=== PATIENT | male | born 1980 | race Caucasian/White ===

== ENCOUNTER → 2016-11-23 12:36 | Outpatient (CLI) | payer MEDICAID ==
[2016-11-05 11:00] VITALS: BMI 37.9
[~2016-11-23 12:36] MED LIST: CLEOCIN HCL150 MG PO; FLAGYL500 MG PO; GLUCOPHAGE500 MG PO; HYDROCODON-ACE1 EAC7 PO; HYDROCODONE-APA1 TAB PO; KEFLEX500 MG PO; LANTUS INSULIN10 ML SC; ROCEPHIN 2 GM/D52 G1 IV
== END | disposition home or self-care (01) ==
LOC: D.MRI 12:36
DX: M79.671 Pain in right foot (principal)

== ENCOUNTER 2016-11-24 09:34 | Inpatient (IN) | payer MEDICAID ==
[~2016-11-24] VITALS: Ht 180.3 cm; Wt 120.2 kg
[2016-11-24] VITALS (8 sets, daily range): BP systolic 121–130; BP diastolic 73–86; BMI 36.9; BMI 37.0
[~2016-11-24 09:34] MED LIST changes: -FLAGYL500 MG PO; -HYDROCODONE-APA1 TAB PO; -ROCEPHIN 2 GM/D52 G1 IV
[2016-11-24 11:38] LABS: HEMATOCRIT 40.3 % (42.0-54.0); HEMOGLOBIN 13.8 g/dL (13.5-17.5); MCH 29.6 pg (26.0-34.0); MCHC 34.2 g/dL (31.0-37.0); MCV 86.3 fL (80.0-100.0); MEAN PLATELET VOLUME 8.5 fL (7.4-10.4); RBC 4.67 10x6/uL (4.20-6.10); RDW 12.1 % (11.5-14.5); WBC 8.4 10x3/uL (4.8-10.8)
[2016-11-24 11:49] LABS: CALC OSMOLALITY 276 mosm/kg (275-300); CALCIUM 9.2 mg/dL (8.5-10.1); CARBON DIOXIDE 26.1 mmol/L (21.0-32.0); CHLORIDE - SERUM 100 mmol/L (98-107); CREATININE - SERUM 0.9 mg/dL (0.6-1.3); GLUCOSE 231 mg/dL (74-106); POTASSIUM - SERUM 5.2 mmol/L (3.5-5.1); SODIUM 134 mmol/L (136-145); UREA NITROGEN 18 mg/dL (7-18); eGFR NON AFRICAN AMERICAN > 90 mL/min (90-120)
--- NOTE | 2016-11-24 12:38 | NUR ---
[address] CASTILLO REGARDING CONSENTS. STATES PICC LINE PLACEMENT WILL NOT BE DONE IN OR TODAY, CONSENT FOR IRRIGATION AND DEBRIDEMENT RIGHT FOOT.
--- NOTE | 2016-11-24 14:00 | NUR ---
RECEIVED TO ROOM 2203 VIA STRETCHER FROM PACU. A/O X3. DRESSING TO RIGHT FOOT DRY AND INTACT. DENIES NEEDS. VSS.
--- NOTE | 2016-11-24 16:30 | NUR ---
C/O NOT FEELING WELL. BP ELEVATED. C/O PAIN IN LEFT ARM AND NUMBNESS AND TINGLING. NOTIFIED GRACIELA MAHNA OF SAME. FSBS 155. GIVEN 4MG ZOFRAN FOR C/O NAUSEA. COLOR IS WHITE,
--- NOTE | 2016-11-24 17:30 | NUR ---
ALL SYMPTOMS RESOLVED AFTER PICC LINE REMOVED. ATE ALMOST ALL OF SUPPER. DENIES NEEDS.
--- NOTE | 2016-11-24 19:20 | NUR ---
RECIEVED SHIFT REPORT. PT IS LYING IN BED. ALERT AND ORIENTED AND ABLE TO VERBALIZE NEEDS. IV IS PATENT AND FLUIDS ARE RUNNING PER ORDER. SCD TO LEFT LEG. PT ON BEDREST BUT IS ABLE TO TURN SELF IN BED FOR COMFORT AND SKIN CARE. ISOLATION PRECAUTIONS IN PLACE. PT STATES PAIN IS 4/10. NO NEEDS ARE VERBALIZED AT THIS TIME. WILL CONTINUE TO MONITOR. SIDE RAILS ARE UP X 2. BED IS IN LOWEST POSITION. CALL LIGHT IS WITHIN REACH.
--- NOTE | 2016-11-24 21:37 | NUR ---
SHIFT ASSESSMENT COMPLETED. NIGHT MEDS GIVEN WITH NO PROBLEMS. PT RECIEVED 8 UNITS INSULIN PER SLIDING SCALE FOR AAKZ=814. SCHEDULED LANTUS GIVEN. NO NEEDS VOICED. WILL MONITOR. SIDE RAILS X 2. BED LOW. CALL LIGHT IN REACH.
--- NOTE | 2016-11-25 00:42 | NUR ---
PT C/O PAIN 05/24. ADMINISTERED PRESCRIBED PRN NORCO PER ORDER. DENIES FURTHER NEEDS. WILL MONITOR. SIDE RAILS X 2. BED LOW. CALL LIGHT IN REACH.
[2016-11-25 01:00] VITALS: BP 133/77
[2016-11-25 05:00] VITALS: BP 128/70
[2016-11-25 06:11] LABS: BASOPHILS 0.3 % (0.0-2.0); HEMOGLOBIN 12.4 g/dL (13.5-17.5); IMMATURE GRANULOCYTES 0.3 % (0-5); LYMPHOCYTES 21.3 % (15-50); MCH 29.3 pg (26.0-34.0); MCHC 33.5 g/dL (31.0-37.0); MCV 87.5 fL (80.0-100.0); MEAN PLATELET VOLUME 8.5 fL (7.4-10.4); MONOCYTES 11.6 % (2-11); NEUTROPHILS 63.5 % (40-80); PLATELET COUNT 370 10x3/uL (130-400); RBC 4.23 10x6/uL (4.20-6.10); RDW 12.2 % (11.5-14.5)
[2016-11-25 07:06] LABS: ALBUMIN 2.8 g/dL (3.4-5.0); ALKALINE PHOSPHATASE 59 U/L (46-116); ALT (SGPT) 23 U/L (10-68); BILIRUBIN - TOTAL 0.26 mg/dL (0.2-1.3); CALC OSMOLALITY 283 mosm/kg (275-300); CALCIUM 8.4 mg/dL (8.5-10.1); CARBON DIOXIDE 29.2 mmol/L (21.0-32.0); CHLORIDE - SERUM 103 mmol/L (98-107); CREATININE - SERUM 1.1 mg/dL (0.6-1.3); GLUCOSE 237 mg/dL (74-106); MAGNESIUM - SERUM 1.6 mg/dL (1.8-2.4); POTASSIUM - SERUM 4.6 mmol/L (3.5-5.1); PROTEIN - SERUM 7.2 g/dL (6.4-8.2); SODIUM 138 mmol/L (136-145); eGFR NON AFRICAN AMERICAN 79 mL/min (90-120)
[2016-11-25 07:08] LABS: UREA NITROGEN 13 mg/dL (7-18)
[2016-11-25 07:46] LABS: HEMOGLOBIN A1C 9.4 % (4.8-6.0)
[2016-11-25 08:47] VITALS: BP 132/68
[2016-11-25 10:03] VITALS: Ht 180.3 cm; Wt 120.2 kg
[2016-11-25 12:30] VITALS: BP 131/82
[2016-11-25 12:31] LABS: LDL-HDL RATIO 3.6 ratio (1.5-3.5)
--- NOTE | 2016-11-25 17:00 | NUR ---
D/C IV FROM LEFT FOREARM WITH CATH INTACT
[2016-11-25 17:29] VITALS: BP 136/66
--- NOTE | 2016-11-25 20:45 | NUR ---
REPORT RECEIVED AND CARE ASSUMED. AWAKE, ALERT AND ORIENTED X 4. RIGHT FOOT WITH DRESSING, CLEAN, DRY AND INTACT. LEFT UPPER ARM WITH PICC LINE- PATENT WITH IV FLUIDS. SCD ON LEFT LEG. SHIFT ASSESSMENT COMPLETED. SR X 2. BED IN LOW POSITION. CALLLIGHT IN EASY REACH.
[2016-11-25 21:00] VITALS: BP 133/71
[2016-11-26 01:00] VITALS: BP 130/66
[2016-11-26 05:20] VITALS: BP 125/73
[2016-11-26 05:26] LABS: BASOPHILS 0.7 % (0.0-2.0); EOSINOPHILS 4.7 % (0-7); HEMATOCRIT 36.2 % (42.0-54.0); HEMOGLOBIN 12.2 g/dL (13.5-17.5); IMMATURE GRANULOCYTES 0.2 % (0-5); LYMPHOCYTES 30.6 % (15-50); MCH 29.5 pg (26.0-34.0); MCHC 33.7 g/dL (31.0-37.0); MCV 87.7 fL (80.0-100.0); MEAN PLATELET VOLUME 8.4 fL (7.4-10.4); MONOCYTES 10.4 % (2-11); NEUTROPHILS 53.4 % (40-80); PLATELET COUNT 299 10x3/uL (130-400); RBC 4.13 10x6/uL (4.20-6.10); RDW 12.2 % (11.5-14.5); WBC 9.1 10x3/uL (4.8-10.8)
[2016-11-26 06:04] LABS: ALBUMIN 2.7 g/dL (3.4-5.0); ALKALINE PHOSPHATASE 53 U/L (46-116); ALT (SGPT) 22 U/L (10-68); CALC OSMOLALITY 284 mosm/kg (275-300); CALCIUM 8.9 mg/dL (8.5-10.1); CHLORIDE - SERUM 106 mmol/L (98-107); CREATININE - SERUM 1.1 mg/dL (0.6-1.3); GLUCOSE 204 mg/dL (74-106); POTASSIUM - SERUM 4.5 mmol/L (3.5-5.1); PROTEIN - SERUM 7.3 g/dL (6.4-8.2); SODIUM 140 mmol/L (136-145); UREA NITROGEN 12 mg/dL (7-18); eGFR NON AFRICAN AMERICAN 79 mL/min (90-120)
--- NOTE | 2016-11-26 07:50 | NUR ---
receive pt care. no other needs at this time. will continue to monitor. will continue plan of care.
--- NOTE | 2016-11-26 08:03 | OP ---
PATIENT NAME: PENNY CROW MEDICAL RECORD: [id number] :78 LOCATION:D.MS [facility]3 ADMISSION DATE:11/24/16 SURGEON: ALLY RICARDO MD DATE OF OPERATION: 11/24/2016 PREOPERATIVE DIAGNOSES: 1. Right foot abscess. 2. Right foot osteomyelitis. 3. Right foot diabetic ulcer. POSTOPERATIVE DIAGNOSES: 1. Right foot abscess. 2. Right foot osteomyelitis. 3. Right foot diabetic ulcer. PROCEDURES PERFORMED: Right foot irrigation and debridement of abscess. SURGEON: Brian Ricardo MD ANESTHESIA: General. CONDITION: He tolerated the procedure well, was transferred to the recovery room in stable condition at termination of procedure. Cultures were sent. INDICATIONS: This is a 36-year-old gentleman that presented with a diabetic foot ulcer several weeks back. He has undergone an I&D, presented back again with mostly an improved appearance, but still some drainage from his foot. We did get a repeat MRI that showed what appeared to be osteomyelitis now in his proximal phalanx and an abscess in between the first and second toes. After discussion, it was felt that this could be brought back for irrigation and debridement and PICC line placement. OPERATIVE REPORT: The patient was taken to the operating room, placed in supine position. General anesthesia was obtained. Right foot was confirmed to be the correct foot. It was prepped and draped in normal fashion. Once this was accomplished, an incision was made over his great toe, slightly to the lateral side. This was taken down through the skin with a knife, following which, blunt dissection was done with a hemostat. He did have a significant amount of purulent material in this area. This was irrigated out copiously. Following which, it was packed with quarter-inch plain gauze. It was then dressed. This was all in the first webspace of his foot. We will get an ID consult. We will get a PICC line placed and proceed from this juncture with him. TRANSINT:[id number] Voice Confirmation ID: [id number] DOCUMENT ID: [id number] ALLY RICARDO MD at 0803 CC: [id number] DICTATION DATE: 11/24/16 1334 WHITE KID BUFFER: 11/24/16 1347 ADM IN [place] [place] [address]
[2016-11-26 09:08] VITALS: BP 127/71
--- NOTE | 2016-11-26 10:41 | NUR ---
PT IS ALERT. ASSESSMENT DONE PER FLOWSHEET. NO CO PAIN AT THIS TIME. WILL CONTINUE TO MONITOR.
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
[2016-11-26 12:30] VITALS: BP 143/74
--- NOTE | 2016-11-26 16:16 | NUR ---
PT SHOWS NO SS OF DISTRESS WILL CONTINUE TO MONITOR.
[2016-11-26 16:19] VITALS: BP 132/74
[2016-11-26 21:00] VITALS: BP 129/73
[2016-11-27 01:00] VITALS: BP 124/58
[2016-11-27 05:00] VITALS: BP 121/68
[2016-11-27 06:55] LABS: BASOPHILS 0.6 % (0.0-2.0); EOSINOPHILS 4.3 % (0-7); HEMATOCRIT 36.5 % (42.0-54.0); HEMOGLOBIN 12.5 g/dL (13.5-17.5); IMMATURE GRANULOCYTES 0.2 % (0-5); LYMPHOCYTES 31.1 % (15-50); MCH 29.8 pg (26.0-34.0); MCHC 34.2 g/dL (31.0-37.0); MCV 87.1 fL (80.0-100.0); MEAN PLATELET VOLUME 8.4 fL (7.4-10.4); MONOCYTES 9.3 % (2-11); NEUTROPHILS 54.5 % (40-80); PLATELET COUNT 294 10x3/uL (130-400); RBC 4.19 10x6/uL (4.20-6.10); RDW 12.2 % (11.5-14.5); WBC 8.3 10x3/uL (4.8-10.8)
--- NOTE | 2016-11-27 07:00 | NUR ---
REPORT RECIEVED, ASSUMED CARE. PATIENT IN BED WITH IV INTACT. NO COMPLAINTS. CALL LIGHT WITHIN REACH.
[2016-11-27 07:23] LABS: ALBUMIN 2.6 g/dL (3.4-5.0); ALKALINE PHOSPHATASE 50 U/L (46-116); ALT (SGPT) 20 U/L (10-68); CALC OSMOLALITY 279 mosm/kg (275-300); CALCIUM 8.2 mg/dL (8.5-10.1); CARBON DIOXIDE 28.7 mmol/L (21.0-32.0); CHLORIDE - SERUM 102 mmol/L (98-107); CREATININE - SERUM 0.9 mg/dL (0.6-1.3); POTASSIUM - SERUM 4.3 mmol/L (3.5-5.1); PROTEIN - SERUM 6.6 g/dL (6.4-8.2); SODIUM 139 mmol/L (136-145); UREA NITROGEN 11 mg/dL (7-18); eGFR NON AFRICAN AMERICAN > 90 mL/min (90-120)
[2016-11-27 07:24] LABS: GLUCOSE 146 mg/dL (74-106)
[2016-11-27 08:38] VITALS: BP 141/94
[2016-11-27 11:56] VITALS: BP 126/66
[2016-11-27] MEDS ORDERED: HYDROCODONE-APA1 TAB PO (12:28)
[2016-11-27] MEDS ORDERED: ROCEPHIN 2 GM/D52 G1 IV (12:29)
[2016-11-27] MEDS ORDERED: FLAGYL500 MG PO (12:30)
--- NOTE | 2016-11-27 12:50 | NUR ---
REPORT GIVEN TO SVETLANA WICK. PATIENT IN BED WITH NO COMPLAINTS. FAMILY AT BEDSIDE.
--- NOTE | 2016-11-27 14:28 | NUR ---
Patient Name: PENNY CROW Admission Status: Elective Accout number: [id number] Admission Date: 11-24-2016 : 1980 Admission Diagnosis: Attending: TOPHER Current LOS: 3 Anticipated DC Date: 11-27-2016 Planned Disposition: Home Health Service Primary Insurance: [place]ID [place] Discharge Planning Comments: CM MET WITH PATIENT AND DAUGHTER TO DISCUSS DISCHARGE PLANNING / NEEDS. PATIENT PLANS TO DISCHARGE TO HOME. STATES AND DAUGHTER WILL BE AVAILBE TO ASSIST HIM WITH ANY NEEDS. PATIENT CHOSE AND SIGNED CHOICE FORM FOR [facility] FOR IV ANTIBIOTIC ADMINISTRATION. Bass Manager WILL DELIVER ANTIBIOTICS AND [facility] WILL ADMIT 11/28/16 AROUND 1130. PATIENT STATES HOME ENVIRONMENT SAFE AND DENIES ANY OTHER DISCHARGE NEEDS. CM WILL CONTINUE TO FOLLOW AND ASSIST NEEDED. Is the patient Alert and Oriented? Yes 0 * How many steps to enter\exit or inside your home? 2 0 * PCP NONE 0 * Pharmacy [facility] * Preadmission Environment Home with Family 0 * ADLs Independent 0 * Equipment None 0 * List name and contact numbers for known caregivers / representatives who currently or will assist patient after discharge: YADY JOHNSON [phone] * Community resources currently utilized None 0 * Additional services required to return to the preadmission environment? Yes 0 * Can the patient safely return to the preadmission environment? Yes 0 * Has this patient been hospitalized within the prior 30 days at any hospital? Yes
[2016-11-27 15:46] VITALS: BP 147/86
--- NOTE | 2016-11-27 16:45 | NUR ---
ALERT AND ORIENTED X4. DISCHARGE INSTRUCTIONS. GIVEN VERBALLY AND WRITTEN. DC HOME WITH RT AC PICC LINE FOR HOME HEALTH TO CONTINUE IV ANTIBIOTICS. POST-OP BOOT ARRIVE TO ROOM FROM [place]. WRITTEN PRESCRIPTION GIVEN FOR PAIN MEDICATIONS. DISCHARGE PAPERS SIGNED ON CHART. ESCORT TO RIDE VIA WHEELCHAIR. REMAIN FREE FROM INJURY.
--- NOTE | 2017-01-12 12:19 | DS ---
PATIENT:PENNY CROW :[birth year] MEDICAL RECORD: [id number] DISCHARGE SUMMARY ADMISSION DATE: 11/24/16 DISCHARGE DATE: 11/27/16 DATE OF ADMISSION: 11/24/2016 DATE OF DISCHARGE: 11/27/2016 ADMITTING DIAGNOSES: Include type 2 diabetes with foot ulcer, osteomyelitis of his foot and abscess of his right foot. PROCEDURE PERFORMED DURING THE HOSPITALIZATION: Right great toe irrigation and drainage. HISTORY OF PRESENT ILLNESS: This is a 36-year-old gentleman with advanced diabetes ____ complications, specifically occurring on his right foot at this juncture. He has been in the hospital prior. He came back. He notably has another area of abscess and swelling in his foot. We discussed options and elected to go ahead and proceed with a debridement of this. He was brought in for this as well as cultures. I also had Dr. Gonzales consult on him to see if there has been an infectious problem with his diabetes. He was kept in the hospital while we worked out the course for his IV antibiotics. Once Dr. Gonzales was content with the plan for his IV antibiotics, he was then discharged to home. He will stay on the IV antibiotics and packing of the open area and he is supposed to see me back in the office in 10-14 days. TRANSINT:[id number] Voice Confirmation ID: [id number] DOCUMENT ID: [id number] ALLY CASTILLO MD at 1219 CC: [id number] DICTATION DATE: 12/25/16 1158 HEAD TEACHER: 12/25/16 2309 DIS IN 11/27/16 [place] [address]
== END 2016-11-27 16:47 | disposition home health service (06) | DRG 623 ==
LOC: D.OPS 09:34 → D.MS 09:34 → D.OPS 12:15 → D.PAN 12:15 → D.OPS 12:30 → D.MS 14:10 → D.OPS 14:11 → D.MS 11-27 16:47
PROVIDERS: Anesthesiology; Family Medicine; ADMIT Orthopaedic Surgery Sports Medicine
PROC: 02HV33Z Insertion of Infusion Device into Superior Vena Cava, Percutaneous Approach (ICD-10-PCS; 2016-11-24)
PROC: B548ZZA Ultrasonography of Superior Vena Cava, Guidance (ICD-10-PCS; 2016-11-24)
PROC: 0HBMXZZ Excision of Right Foot Skin, External Approach (ICD-10-PCS; principal; 2016-11-24 12:30)
PROC: 02HV33Z Insertion of Infusion Device into Superior Vena Cava, Percutaneous Approach (ICD-10-PCS; 2016-11-25)
PROC: B548ZZA Ultrasonography of Superior Vena Cava, Guidance (ICD-10-PCS; 2016-11-25)
DX: E11.621 Type 2 diabetes mellitus with foot ulcer (principal); M86.9 Osteomyelitis, unspecified; L02.611 Cutaneous abscess of right foot; L97.519 Non-pressure chronic ulcer of other part of right foot with unspecified severity; Z79.4 Long term (current) use of insulin; E11.69 Type 2 diabetes mellitus with other specified complication; E11.42 Type 2 diabetes mellitus with diabetic polyneuropathy

== ENCOUNTER → 2016-11-30 13:32 | Outpatient (CLI) | payer MEDICAID ==
[2016-11-25 10:03] VITALS: BMI 36.9
[~2016-11-30 13:32] MED LIST changes: +FLAGYL500 MG PO; +HYDROCODONE-APA1 TAB PO; +ROCEPHIN 2 GM/D52 G1 IV
[2016-11-30 15:01] LABS: BASOPHILS 0.5 % (0.0-2.0); EOSINOPHILS 3.3 % (0-7); HEMATOCRIT 38.3 % (42.0-54.0); HEMOGLOBIN 13.1 g/dL (13.5-17.5); IMMATURE GRANULOCYTES 0.1 % (0-5); LYMPHOCYTES 34.2 % (15-50); MCH 29.5 pg (26.0-34.0); MCHC 34.2 g/dL (31.0-37.0); MCV 86.3 fL (80.0-100.0); MEAN PLATELET VOLUME 8.8 fL (7.4-10.4); NEUTROPHILS 53.9 % (40-80); PLATELET COUNT 292 10x3/uL (130-400); RBC 4.44 10x6/uL (4.20-6.10); RDW 12.2 % (11.5-14.5); WBC 8.2 10x3/uL (4.8-10.8)
[2016-11-30 15:29] LABS: C-REACTIVE PROTEIN 0.9 mg/dL (0.0-0.9)
[2016-11-30 16:39] LABS: ERYTHROCYTE SEDIMENTATION RATE 28 mm/hr (0-15)
== END | disposition home or self-care (01) ==
LOC: D.LAB 13:32
PROVIDERS: Student in an Organized Health Care Education/Training Program
DX: Z51.81 Encounter for therapeutic drug level monitoring (principal); Z79.2 Long term (current) use of antibiotics; M86.9 Osteomyelitis, unspecified

== ENCOUNTER → 2016-12-07 12:30 | Outpatient (CLI) | payer MEDICAID ==
[2016-11-25 10:03] VITALS: BMI 36.9
[2016-12-07 12:51] LABS: BASOPHILS 0.5 % (0.0-2.0); EOSINOPHILS 2.8 % (0-7); HEMATOCRIT 40.3 % (42.0-54.0); HEMOGLOBIN 13.8 g/dL (13.5-17.5); IMMATURE GRANULOCYTES 0.2 % (0-5); LYMPHOCYTES 32.6 % (15-50); MCH 29.9 pg (26.0-34.0); MCHC 34.2 g/dL (31.0-37.0); MCV 87.4 fL (80.0-100.0); MONOCYTES 7.5 % (2-11); NEUTROPHILS 56.4 % (40-80); PLATELET COUNT 235 10x3/uL (130-400); RBC 4.61 10x6/uL (4.20-6.10); RDW 12.8 % (11.5-14.5); WBC 10.1 10x3/uL (4.8-10.8)
[2016-12-07 13:03] LABS: C-REACTIVE PROTEIN 0.8 mg/dL (0.0-0.9); CREATININE - SERUM 1.4 mg/dL (0.6-1.3)
[2016-12-07 13:58] LABS: ERYTHROCYTE SEDIMENTATION RATE 25 mm/hr (0-15)
== END | disposition home or self-care (01) ==
LOC: D.LABREF 12:30
PROVIDERS: Student in an Organized Health Care Education/Training Program
DX: M86.171 Other acute osteomyelitis, right ankle and foot (principal)

== ENCOUNTER → 2016-12-14 15:16 | Outpatient (CLI) | payer MEDICAID ==
[2016-11-25 10:03] VITALS: BMI 36.9
[2016-12-14 18:13] LABS: BASOPHILS 0.4 % (0.0-2.0); HEMATOCRIT 40.1 % (42.0-54.0); HEMOGLOBIN 13.7 g/dL (13.5-17.5); IMMATURE GRANULOCYTES 0.1 % (0-5); LYMPHOCYTES 29.3 % (15-50); MCHC 34.2 g/dL (31.0-37.0); MCV 87.7 fL (80.0-100.0); MEAN PLATELET VOLUME 9.4 fL (7.4-10.4); MONOCYTES 9.6 % (2-11); NEUTROPHILS 57.6 % (40-80); PLATELET COUNT 220 10x3/uL (130-400); RBC 4.57 10x6/uL (4.20-6.10); RDW 13.3 % (11.5-14.5); WBC 8.3 10x3/uL (4.8-10.8)
[2016-12-14 19:25] LABS: C-REACTIVE PROTEIN 1.1 mg/dL (0.0-0.9)
[2016-12-14 19:55] LABS: ERYTHROCYTE SEDIMENTATION RATE 26 mm/hr (0-15)
== END | disposition home or self-care (01) ==
LOC: D.LABREF 15:16
PROVIDERS: Student in an Organized Health Care Education/Training Program
DX: M86.9 Osteomyelitis, unspecified (principal)

== ENCOUNTER → 2016-12-21 12:16 | Outpatient (CLI) | payer MEDICAID ==
[2016-11-25 10:03] VITALS: BMI 36.9
[2016-12-21 12:55] LABS: HEMATOCRIT 38.5 % (42.0-54.0); HEMOGLOBIN 13.6 g/dL (13.5-17.5); MCH 30.2 pg (26.0-34.0); MCHC 35.3 g/dL (31.0-37.0); MCV 85.4 fL (80.0-100.0); MEAN PLATELET VOLUME 8.8 fL (7.4-10.4); PLATELET COUNT 237 10x3/uL (130-400); RBC 4.51 10x6/uL (4.20-6.10); RDW 13.1 % (11.5-14.5); WBC 7.4 10x3/uL (4.8-10.8)
[2016-12-21 13:14] LABS: C-REACTIVE PROTEIN 0.2 mg/dL (0.0-0.9); CREATININE - SERUM 0.8 mg/dL (0.6-1.3)
[2016-12-21 14:03] LABS: EOSINOPHILS 1 % (0-7); ERYTHROCYTE SEDIMENTATION RATE 17 mm/hr (0-15); LYMPHOCYTES 42 % (15-50); MONOCYTES 3 % (2-11); NEUTROPHILS 51 % (40-80); PLATELET ESTIMATE NORMAL
== END | disposition home or self-care (01) ==
LOC: D.LABREF 12:16
PROVIDERS: Student in an Organized Health Care Education/Training Program
DX: E11.9 Type 2 diabetes mellitus without complications (principal)

== ENCOUNTER 2016-12-22 06:01 | Emergency (ER) | payer MEDICAID ==
[2016-11-25 10:03] VITALS: BMI 36.9
[2016-12-22 07:26] LABS: BASOPHILS 0.4 % (0.0-2.0); EOSINOPHILS 3.1 % (0-7); HEMATOCRIT 38.5 % (42.0-54.0); HEMOGLOBIN 13.2 g/dL (13.5-17.5); IMMATURE GRANULOCYTES 0.2 % (0-5); LYMPHOCYTES 29.5 % (15-50); MCH 29.8 pg (26.0-34.0); MCHC 34.3 g/dL (31.0-37.0); MCV 86.9 fL (80.0-100.0); MEAN PLATELET VOLUME 8.5 fL (7.4-10.4); MONOCYTES 10.7 % (2-11); NEUTROPHILS 56.1 % (40-80); PLATELET COUNT 229 10x3/uL (130-400); RBC 4.43 10x6/uL (4.20-6.10); RDW 13.2 % (11.5-14.5); WBC 8.4 10x3/uL (4.8-10.8)
[2016-12-22 07:32] LABS: CALCIUM 8.7 mg/dL (8.5-10.1); CARBON DIOXIDE 28.5 mmol/L (21.0-32.0); CHLORIDE - SERUM 101 mmol/L (98-107); POTASSIUM - SERUM 4.4 mmol/L (3.5-5.1); SODIUM 136 mmol/L (136-145); eGFR NON AFRICAN AMERICAN 89 mL/min (90-120)
[2016-12-22 07:33] LABS: CALC OSMOLALITY 279 mosm/kg (275-300); GLUCOSE 229 mg/dL (74-106); UREA NITROGEN 15 mg/dL (7-18)
== END 2016-12-22 12:47 | disposition home or self-care (01) ==
LOC: D.ER 06:01
PROVIDERS: Emergency Medicine Emergency Medical Services
DX: I82.A11 Acute embolism and thrombosis of right axillary vein (principal); I74.2 Embolism and thrombosis of arteries of the upper extremities; I10 Essential (primary) hypertension; E11.621 Type 2 diabetes mellitus with foot ulcer; Z79.4 Long term (current) use of insulin

== ENCOUNTER → 2016-12-28 13:04 | Outpatient (CLI) | payer MEDICAID ==
[2016-11-25 10:03] VITALS: BMI 36.9
[2016-12-28 13:18] LABS: BASOPHILS 0.3 % (0.0-2.0); EOSINOPHILS 2.4 % (0-7); HEMATOCRIT 38.8 % (42.0-54.0); HEMOGLOBIN 13.6 g/dL (13.5-17.5); IMMATURE GRANULOCYTES 0.3 % (0-5); LYMPHOCYTES 22.1 % (15-50); MCH 30.2 pg (26.0-34.0); MCHC 35.1 g/dL (31.0-37.0); MCV 86.2 fL (80.0-100.0); MEAN PLATELET VOLUME 8.8 fL (7.4-10.4); MONOCYTES 8.5 % (2-11); NEUTROPHILS 66.4 % (40-80); RDW 13.1 % (11.5-14.5)
[2016-12-28 13:31] LABS: C-REACTIVE PROTEIN 2.3 mg/dL (0.0-0.9); CREATININE - SERUM 0.9 mg/dL (0.6-1.3)
[2016-12-28 13:33] LABS: PLATELET COUNT 304 10x3/uL (130-400)
[2016-12-28 14:37] LABS: ERYTHROCYTE SEDIMENTATION RATE 33 mm/hr (0-15)
== END | disposition home or self-care (01) ==
LOC: D.LABREF 13:04
PROVIDERS: Student in an Organized Health Care Education/Training Program
DX: E11.9 Type 2 diabetes mellitus without complications (principal)

== ENCOUNTER → 2017-01-07 11:39 | Outpatient (CLI) | payer MEDICAID ==
[2016-11-25 10:03] VITALS: BMI 36.9
[2017-01-07 18:46] LABS: ERYTHROCYTE SEDIMENTATION RATE 26 mm/hr (0-15)
== END | disposition home or self-care (01) ==
LOC: D.LABREF 11:39
PROVIDERS: Student in an Organized Health Care Education/Training Program
DX: M86.9 Osteomyelitis, unspecified (principal)

== ENCOUNTER → 2017-03-16 10:56 | Outpatient (CLI) | payer MEDICAID ==
[2016-11-25 10:03] VITALS: BMI 36.9
[2017-03-16 11:38] LABS: ANION GAP 13.2 mmol/L (8-16); C-REACTIVE PROTEIN 0.7 mg/dL (0.0-0.9); CALCIUM 9.6 mg/dL (8.5-10.1); CREATININE - SERUM 1.2 mg/dL (0.6-1.3); POTASSIUM - SERUM 5.2 mmol/L (3.5-5.1)
[2017-03-16 12:37] LABS: ERYTHROCYTE SEDIMENTATION RATE 18 mm/hr (0-15)
== END | disposition home or self-care (01) ==
LOC: D.LAB 10:56 → D.MRI 12:00
PROVIDERS: Student in an Organized Health Care Education/Training Program
DX: M79.671 Pain in right foot (principal)

== ENCOUNTER 2018-05-19 08:14 | Observation (INO) | payer MEDICAID ==
[2018-05-19] VITALS (10 sets, daily range): BP systolic 118–136; BP diastolic 66–96; BMI 35.6
[~2018-05-19] VITALS: Ht 180.3 cm; Wt 115.9 kg
--- NOTE | ~2018-05-19 | HEMODYNAMI ---
PATIENT:PENNY CROW MEDICAL RECORD: [id number] : 76 [id number] ADMISSION DATE: 05/19/18 Generatedon:05/20/201814:48 Patient name: PENNY CROW Patient #: [id number] SSN: : 1980 Date of study: 05/20/2018 Page: Of Hemodynamic Procedure Report Patient Data Patient Demographics Procedure consent was obtained First Name: PENNY Gender: Male Last Name: TRISTIN : 1980 [facility] Initial: MECHE Age: 38 year(s) Patient #: [id number] Race: Unknown Additional ID: [id number] Contact details [address]: [address] [place] [address] State: [place] City: [place] Zip code: [address] Admission Admission Data Admission Date: 05/19/2018 Admission Time: 10:20 Room #: D.2110 Lab Results Lab Result Date: 05/20/2018 Lab Result Time: 0:00 Biochemistry Name Units Result Min Max BUN mg/dl 26 --(----)-* 7 18 Creatinine mg/dl 1.4 --(----)*- 0.6 1.3 CBC Name Units Result Min Max Hemoglobin g/dl 13.4 -*(----)-- 13.5 17.5 Procedure Procedure Types Cath Procedure Diagnostic Procedure LHC LHC w/Coronaries Procedure Description Procedure Date Procedure Date: 05/20/2018 Procedure Start Time: 14:37 Procedure End Time: 14:48 Procedure Staff Name Function Chuy Vidal MD Performing Physician Seble Fuentes RT Monitor Ebony Ventura RT Scrub Milla Byrd RN Nurse Procedure Data Cath Procedure Fluoroscopy Diagnostic fluoroscopy Total fluoroscopy Time: 1.5 time: 1.5 min min Diagnostic fluoroscopy Total fluoroscopy dose: 569 dose: 569 mGy mGy Contrast Material Contrast Material Type Amount (ml) Isovue 300 42 Entry Location Entry Primary Successful Side Size Upsize Upsize Entry Closure Succes sful Closure Location (Fr) 1 (Fr) 2 (Fr) Remarks Device Remarks Femoral Right 5 Fr Exoseal artery Estimated blood loss: 5 ml Diagnostic catheters Device Type Used For End Catheter Placement MULTIPACK JL 4.0 5Fr Left Coronary catheter Angiography MULTIPACK 3DRC 5Fr Right Coronary catheter Angiography MULTIPACK Pigtail 5 Fr LV Angiography catheter Procedure Complications No complications Procedure Medications Medication Administration Route Dosage Oxygen NC 2 l/min Lidocaine 2% added to field 20 Heparin Flush Bag added to field 2 bags (1000units/500ml NS) 0.9% NaCl I.V. 100 ml/hr Versed I.V. 1 mg Fentanyl I.V. 50 mcg Versed I.V. 1 mg Fentanyl I.V. 50 mcg Hemodynamics Rest HGB: 13.4 (g/dl) Heart Rate: 86 (bpm) Pressure Samples Time Site Value (mmHg) Purpose Heart Use Rate(bpm) 14:44 LV 120/-17,2 Snapshot 88 14:45 AO 109/62(80) Pullback 86 14:45 LV 129/-8,1 Pullback 86 Gradients Valve Time Site 1 Site 2 Mean SEP/DFP Peak To Heart Use (mmHg) (sec/min) Peak Rate (mmHg) (bpm) Aortic 14:45 LV AO 19 14 20 86 129/-8,1 109/62(80) Calculations Valve P-P Mean Valve Index Valve Source Name Gradient Area Flow (cm2) Aortic 20 19 20 19 Snapshots Pre Cath Intra NCS Post Cath Vital Signs Time Heart Resp SPO2 etCO2 NIBP (mmHg) Rhythm Pain Sedation Rate (ipm) (%) (mmHg) Status Level (bpm) 14:30:38 80 16 97 0 138/89(108) NSR 0 (11) 10(A) , No pain 14:34:50 82 19 94 35.3 113/85(97) NSR 0 (11) 10(A) , No pain 14:38:54 85 19 96 29.3 129/85(108) NSR 0 (11) 9(A) , No pain 14:43:03 86 16 96 37.6 115/84(108) NSR 0 (11) 9(A) , No pain 14:47:07 86 19 98 36.8 128/88(117) NSR 0 (11) 10(A) , No pain Medications Time Medication Route Dose Verified Delivered Reason Notes Effe ctiveness by by 14:32:02 Fentanyl I.V. 50 Chuy Buffie for mcg Young Byrd RN sedation 14:32:06 Oxygen NC 2 Chuy Buffie used for l/min Young Byrd RN procedure 14:32:13 Lidocaine 2% added 20ml Chuy Chuy for local to vial Young Vidal MD anesthetic field 14:32:18 Heparin Flush added 2 Chuy Chuy used for Bag to bags Young Vidal MD procedure (1000units/500ml field NS) 14:32:25 0.9% NaCl I.V. 100 Chuy Buffie Per ml/hr Young Byrd RN physician 14:32:57 Versed I.V. 1 mg Chuy Buffie for Young Byrd RN sedation 14:39:20 Versed I.V. 1 mg Chuy Buffie for Young Byrd RN sedation 14:39:24 Fentanyl I.V. 50 Chuy Buffie for mcg Young Byrd RN sedation Procedure Log Time Note 14:16:16 Diagnostic Cath Status : Elective 14:16:29 Milla Byrd RN sent for patient. Start room use. 14:16:30 Time tracking: Regular hours (M-F 7:00 - 5:00) 14:16:35 Plan of Care:Hemodynamics will remain stable., Cardiac rhythm will remain stable., Comfort level will be maintained., Respiratory function will remain adequate., Patient/ family verbilizes understanding of procedure., Procedure tolerated without complication., Recovers from procedure without complications.. 14:29:31 Patient received from Med II to [facility] 2 Alert and oriented. Tansferred to table in Supine position. 14:29:32 Warm blankets applied, and humberto hugger turned on for patient comfort. 14:29:32 Correct patient and procedure confirmed by team. 14:29:34 Signed procedure consent form obtained from patient. 14:29:35 ECG and BP/O2 sat monitors applied to patient. 14:29:36 Vital chart was started 14:29:37 Baseline sample Acquired. 14:29:40 Rhythm: sinus rhythm 14:29:43 Full Disclosure recording started 14:29:49 H&P Date Dictated: 05/20/2018 Within 30 days and on chart., H&P Addendum completed by physician on day of procedure. (MUST COMPLETE FOR ALL OUTPATIENTS). 14:29:50 Pre-procedure instructions explained to patient. 14:29:51 Pre-op teaching completed and patient verbalized understanding. 14:29:52 Family in waiting room. 14:30:00 Patient NPO since Midnight. 14:30:08 Is the patient allergic to Iodine/contrast media? No. 14:30:09 Was the patient premedicated? No 14:30:10 Is patient on blood thinner?No 14:30:12 Patient diabetic? Yes. 14:30:27 If diabetic: On Metformin? Yes 14:30:29 If on Metformin: Last Dose? 05/20/2018 14:30:35 Previous problem with sedation/anesthesia? No ? 14:30:36 Snore? Yes 14:30:38 Sleep apnea? No 14:30:40 Deviated septum? No 14:30:40 Opens mouth fully? Yes 14:30:41 Sticks out tongue? Yes 14:30:43 Airway obstruction? No ? 14:30:45 Dentures? No ? 14:30:49 Pre procedure: right dorsailis pedis pulse 2+ Normal; easily identifiable; not easily obliterated 14:30:51 Pre procedure: left dorsailis pedis pulse 2+ Normal; easily identifiable; not easily obliterated 14:30:53 Patient pain scale 0/10 ?. 14:30:59 IV patent on arrival in left forearm with 0.9% NaCl at [facility]. 14:31:00 Lab results completed and on chart. 14:31:05 Right groin area was prepped with chlora-prep and draped in sterile fashion 14:31:06 Alarms reviewed by R. N. 14:31:06 Sharps counted by scrub and verified by R.N. 14:31:08 Physician arrived 14:31:08 --------ALL STOP TIME OUT------ 14:31:09 Final Timeout: patient, procedure, and site verified with staff and physician. All members of the team are in agreement. 14:31:10 Right groin site verified by team. 14:31:13 Physical assessment completed. ASA score P 2 - A patient with mild systemic disease as per Chuy Vidal MD. 14:31:16 Sedation plan: IV Moderate Sedation Medication:Versed, Fentanyl 14:31:23 Use device set Femoral Dx 14:31:24 ACIST Syringe (90947) opened to sterile field. 14:31:25 Bag Decanter (2001S) opened to sterile field. 14:31:25 Medline Cath Pack ([id number]) opened to sterile field. 14:31:26 DIAGNOSTIC WIRE .035 260cm J wire (900545) opened to sterile field. 14:31:27 ACIST Hand Control (27277) opened to sterile field. 14:31:27 ACIST Manifold (46850) opened to sterile field. 14:31:28 DIAGNOSTIC Multipack 5Fr catheter set ([id number]) opened to sterile field. 14:31:28 Tegaderm 4 x 4 (1626W) opened to sterile field. 14:31:29 SHEATH Prelude 5Fr 0.035 ([id number]-8H-74-035) opened to sterile field. 14:32:02 Fentanyl 50 mcg I.V. was administered by Milla Byrd RN; for sedation; 14:32:06 Oxygen 2 l/min NC was administered by Milla Byrd RN; used for procedure; 14:32:13 Lidocaine 2% 20ml vial added to field was administered by Chuy Vidal MD; for local anesthetic; 14:32:18 Heparin Flush Bag (1000units/500ml NS) 2 bags added to field was administered by Chuy Vidal MD; used for procedure; 14:32:25 0.9% NaCl 100 ml/hr I.V. was administered by Milla Byrd RN; Per physician; 14:32:57 Versed 1 mg I.V. was administered by Milla Byrd RN; for sedation; 14:33:03 Lab Result : BUN 26 mg/dl 14:33:03 Lab Result : Hemoglobin 13.4 g/dl 14:33:03 Lab Result : Creatinine 1.4 mg/dl 14:37:15 Procedure started. 14:37:35 Local anesthetic to right femoral artery with Lidocaine 2% by Chuy Vidal MD.INITIAL ACCESS ONLY 14:37:46 A 5 Fr sheath was inserted into the Right Femoral artery 14:38:33 A MULTIPACK JL 4.0 5Fr catheter was advanced over the wire and used for Left Coronary Angiography. 14:39:20 Versed 1 mg I.V. was administered by Milla Byrd RN; for sedation; 14:39:24 Fentanyl 50 mcg I.V. was administered by Buffie Byrd RN; for sedation; 14:39:52 LCA angiography performed. 14:40:38 Injector settings: Ml/sec: 3, Volume: 6, 14:41:25 Catheter removed. 14:41:30 A MULTIPACK 3DRC 5Fr catheter was advanced over the wire and used for Right Coronary Angiography. 14:42:50 Catheter removed. 14:43:00 A MULTIPACK Pigtail 5 Fr catheter was advanced over the wire and used for LV Angiography. 14:44:44 LV hemodynamics recorded. 14:44:57 LV gram done using ABARCA 14:45:00 Injector settings: Ml/sec: 5, Volume: 15, 14:45:05 EF : 60 % 14:45:39 Catheter removed. 14:45:40 EXOSEAL 5Fr (EX500) opened to sterile field. 14:46:06 Sheath removed intact; hemostasis achieved with Exoseal to the Right Femoral artery. 14:46:07 Procedure ended.(Physican Out) 14:46:39 Fluoroscopy time 01.50 minutes. 14:46:43 Fluoroscopy dose: 569 mGy 14:46:43 Flurop Dose total: 569 14:46:46 Contrast amount:Isovue 300 42ml. 14:46:48 Sharps counted by scrub and verified by R.N. 14:46:51 Insertion/operative site no bleeding no hematoma. 14:46:53 Post-op/insertion site Right Femoral artery dressed using a 4 x 4 and Tegaderm. 14:46:56 Post right femoral artery:stable 14:46:57 Post Procedure Pulses reassessed and unchanged 14:46:59 Post procedure rhythm: unchanged. 14:47:02 Estimated blood loss: 5 ml 14:47:10 Post procedure instruction explained to patient.Patient verbalizes understanding. 14:47:10 Patient needs reinforcement of post procedure teaching. 14:47:37 Procedure type changed to Cath procedure, Diagnostic procedure, LHC, LHC w/Coronaries 14:47:39 Procedure and supply charges have been captured, reviewed, submitted and are correct. 14:47:43 Procedure Complication : No complications 14:47:46 Vital chart was stopped 14:47:46 See physician's report for complete and final results. 14:47:54 Report given to [facility] II. 14:47:57 Patient transfered to [facility] with Stretcher. 14:48:00 Procedure ended. 14:48:00 Full Disclosure recording stopped 14:48:10 End room use (Document Last) Device Usage Item Name Manufacture Quantity Catalog Number Hospital Part Current M inimal Lot# / Charge Number Stock Stock Serial# Code ACIST Syringe Acist 1 52810 250908 279207 601345 2 0 (85674) [employer] Bag Decanter Microtek 1 2001S 685300 58639 593853 5 (2001S) Medical Inc. Medline Cath Cardinal 1 [id number] 262143 98837 089847 5 Pack Health ([id number]) DIAGNOSTIC WIRE St El 1 581284 503657 080252 668602 3 0 .035 260cm J wire (471842) ACIST Hand Acist 1 13371 566609 006551 889497 5 Control (88816) [employer] ACIST Manifold Acist 1 53353 357613 030224 167229 5 (13524) [employer] Inc DIAGNOSTIC Cardinal 1 [id number] 983453 93781 291167 3 0 Multipack 5Fr Health catheter set ([id number]) Tegaderm 4 x 4 3M 1 1626W 475828 856701 901706 5 (1626W) SHEATH Prelude Merit 1 [id number] 507765 517392 891522 5 5Fr 0.035 Medical (YID-1M-01-035) MULTIPACK JL Cardinal 1 154282 5 4.0 5Fr Health catheter MULTIPACK 3DRC Cardinal 1 845644 5 5Fr catheter Health MULTIPACK Cardinal 1 [id number] 5 Pigtail 5 Fr Health catheter EXOSEAL 5Fr Cardinal 1 EX500 984568 496193 864025 1 0 (EX500) Health Signature Audit [place] Stage Time Signature Unsigned Intra-Procedure 05/20/2018 Seble Fuentes 2:48:47 PM RT(R) Signatures Monitor : Seble Fuentes RT Signature : Date : Time : [facility] [address] [place] [address]
[2018-05-19] MEDS ORDERED: GLUCOPHAGE850 MG (08:20)
[2018-05-19] MEDS ORDERED: PRAVACHOL20 MG PO (08:21)
[2018-05-19] MEDS ORDERED: HCTZ25 MG PO (08:21)
[2018-05-19] MEDS ORDERED: HUMALOG 30100 UNITS/ SC (08:21)
[2018-05-19] MEDS ORDERED: NEURONTIN 400400 MG PO (08:22)
[2018-05-19] MEDS ORDERED: INVOKANA100 MG PO (08:22)
[2018-05-19] MEDS ORDERED: AMOX TR-K CLV 21 TAB PO (08:23)
[2018-05-19 09:11] LABS: BASOPHILS 0.8 % (0-2); EOSINOPHILS 3.6 % (0-7); HEMATOCRIT 37.2 % (42.0-54.0); HEMOGLOBIN 13.4 g/dL (13.5-17.5); IMMATURE GRANULOCYTES 0.1 % (0-5); LYMPHOCYTES 35.1 % (15-50); MCH 30.8 pg (26.0-34.0); MCV 85.5 fL (80.0-100.0); MEAN PLATELET VOLUME 8.7 fL (7.4-10.4); MONOCYTES 11.3 % (2-11); NEUTROPHILS 49.1 % (40-80); RBC 4.35 10x6/uL (4.20-6.10); RDW 12.3 % (11.5-14.5)
[2018-05-19 09:13] LABS: PLATELET COUNT 225 10x3/uL (130-400)
[2018-05-19 09:20] LABS: APTT 26.7 SECONDS (22.8-39.4); INR 1.07 (0.85-1.17); PROTIME 13.5 SECONDS (11.6-15.0)
[2018-05-19 09:21] LABS: D-DIMER-QUANTITATIVE < 0.27 ug/mLFEU (0.20-0.54)
[2018-05-19 09:40] LABS: ALBUMIN 3.3 g/dL (3.4-5.0); ALKALINE PHOSPHATASE 78 U/L (46-116); ALT (SGPT) 28 U/L (10-68); BILIRUBIN - TOTAL 0.29 mg/dL (0.2-1.3); CALC OSMOLALITY 291 mosm/kg (275-300); CALCIUM 8.8 mg/dL (8.5-10.1); CARBON DIOXIDE 26.1 mmol/L (21.0-32.0); CHLORIDE - SERUM 99 mmol/L (98-107); CREATINE KINASE 265 UL (21-232); CREATININE - SERUM 1.4 mg/dL (0.6-1.3); GLUCOSE 399 mg/dL (74-106); POTASSIUM - SERUM 4.3 mmol/L (3.5-5.1); PRO BNP 44 pg/mL (0-125); SODIUM 135 mmol/L (136-145); UREA NITROGEN 26 mg/dL (7-18); eGFR NON AFRICAN AMERICAN 60 mL/min (90-120)
[2018-05-19 09:44] LABS: TROPONIN-I < 0.017 ng/mL (0.000-0.060)
[2018-05-19 11:47] LABS: CREATINE KINASE 265 UL (21-232)
[2018-05-19 11:50] LABS: TROPONIN-I < 0.017 ng/mL (0.000-0.060)
[2018-05-19 17:44] LABS: CKMB 3.2 U/L (0.0-3.6); CREATINE KINASE 231 UL (21-232); TROPONIN-I < 0.017 ng/mL (0.000-0.060)
[2018-05-19 23:53] LABS: CKMB 3.7 U/L (0.0-3.6); CREATINE KINASE 215 UL (21-232); TROPONIN-I < 0.017 ng/mL (0.000-0.060)
[2018-05-20 01:00] VITALS: BP 122/65
[2018-05-20 05:59] VITALS: BP 121/80
[2018-05-20 07:53] VITALS: BP 123/73
[2018-05-20 09:55] VITALS: Ht 180.3 cm; Wt 115.9 kg
[2018-05-20 10:39] LABS: % SATURATION 22 % (15-55); IRON 54 ug/dl (35-150); TOTAL IRON BIND CAPACITY 245 ug/dl (260-445); UNSAT IRON BIND CAPACITY 191 ug/dl (150-375)
[2018-05-20 20:00] VITALS: BP 133/87
[2018-05-21 07:21] LABS: FOLATE (FOLIC ACID) - SERUM 9.2 ng/mL (>3.0)
== END 2018-05-20 21:25 | disposition home or self-care (01) ==
LOC: D.ER 08:14 → OBSVTIME 10:20 → D.M2 10:20 → D.EDHOLD 10:20 → D.M2 15:46
PROVIDERS: Family Medicine; Internal Medicine Nephrology
DX: R07.89 Other chest pain (principal); N17.9 Acute kidney failure, unspecified; E87.1 Hypo-osmolality and hyponatremia; E11.40 Type 2 diabetes mellitus with diabetic neuropathy, unspecified; I10 Essential (primary) hypertension; D64.9 Anemia, unspecified; F17.203 Nicotine dependence unspecified, with withdrawal

== ENCOUNTER 2018-06-03 19:07 | Emergency (ER) | payer MEDICAID ==
[~2018-06-03] VITALS: Ht 180.3 cm; Wt 117.7 kg
[~2018-06-03 19:07] MED LIST changes: +AMOX TR-K CLV 21 TAB PO; +GLUCOPHAGE850 MG; +HCTZ25 MG PO; +HUMALOG 30100 UNITS/ SC; +INVOKANA100 MG PO; +NEURONTIN 400400 MG PO; +PRAVACHOL20 MG PO
[2018-06-03 19:18] VITALS: Ht 180.3 cm; Wt 117.7 kg
[2018-06-03 19:39] LABS: BASOPHILS 0.2 % (0-2); EOSINOPHILS 0.2 % (0-7); HEMOGLOBIN 13.7 g/dL (13.5-17.5); IMMATURE GRANULOCYTES 0.3 % (0-5); LYMPHOCYTES 15.5 % (15-50); MCH 30.8 pg (26.0-34.0); MCHC 36.1 g/dL (31.0-37.0); MCV 85.4 fL (80.0-100.0); MEAN PLATELET VOLUME 8.5 fL (7.4-10.4); MONOCYTES 11.7 % (2-11); NEUTROPHILS 72.1 % (40-80); PLATELET COUNT 214 10x3/uL (130-400); RBC 4.45 10x6/uL (4.20-6.10); RDW 12.3 % (11.5-14.5); WBC 10.1 10x3/uL (4.8-10.8)
[2018-06-03 20:08] LABS: ALBUMIN 3.4 g/dL (3.4-5.0); ANION GAP 8.7 mmol/L (8-16); BILIRUBIN - TOTAL 0.62 mg/dL (0.2-1.3); CALCIUM 8.4 mg/dL (8.5-10.1); CARBON DIOXIDE 30.7 mmol/L (21.0-32.0); CREATININE - SERUM 1.5 mg/dL (0.6-1.3); POTASSIUM - SERUM 4.4 mmol/L (3.5-5.1); PROTEIN - SERUM 7.5 g/dL (6.4-8.2)
[2018-06-03 21:46] LABS: APPEARANCE CLEAR (CLEAR); BILIRUBIN NEGATIVE (NEGATIVE); COLOR YELLOW (YELLOW); GLUCOSE 1000 mg/dL (NEGATIVE); KETONE NEGATIVE (NEGATIVE); NITRITE NEGATIVE (NEGATIVE); PROTEIN TRACE mg/dL (NEGATIVE); RED CELLS - URINE 0-5 /hpf (0-5); SPECIFIC GRAVITY 1.005 (1.005-1.020); UROBILINOGEN NORMAL (NORMAL); WHITE CELLS - URINE OCC /hpf (0-5)
[2018-06-03 23:50] VITALS: BP 128/74
== END 2018-06-03 23:50 | disposition home or self-care (01) ==
LOC: D.ER 19:07
PROVIDERS: Family Medicine
DX: R53.83 Other fatigue (principal); E11.65 Type 2 diabetes mellitus with hyperglycemia; E87.1 Hypo-osmolality and hyponatremia; R53.81 Other malaise; I10 Essential (primary) hypertension; M79.1 Myalgia

== ENCOUNTER 2018-06-04 23:18 | Emergency (ER) | payer MEDICAID ==
[~2018-06-04] VITALS: Ht 180.3 cm; Wt 117.7 kg
[2018-06-04 23:38] VITALS: Ht 180.3 cm; Wt 117.7 kg
[2018-06-05] MEDS ORDERED: TYLENOL W/CODEI1 TAB PO (00:59)
[2018-06-05] MEDS ORDERED: VIBRAMYCIN 100100 MG PO (00:59)
[2018-06-05 01:26] VITALS: BP 135/74
== END 2018-06-05 01:26 | disposition home or self-care (01) ==
LOC: D.ER 23:18
DX: L03.115 Cellulitis of right lower limb (principal); E11.9 Type 2 diabetes mellitus without complications; I10 Essential (primary) hypertension

== ENCOUNTER 2020-02-29 10:35 | Emergency (ER) | payer MEDICARE ==
[~2020-02-29] VITALS: Ht 180.3 cm; Wt 136.8 kg
[~2020-02-29 10:35] MED LIST changes: +TYLENOL W/CODEI1 TAB PO; +VIBRAMYCIN 100100 MG PO
[2020-02-29 10:37] VITALS: Ht 180.3 cm; Wt 136.8 kg
[2020-02-29 10:51] LABS: BASOPHILS 0.3 % (0-2); EOSINOPHILS 2.8 % (0-7); HEMATOCRIT 37.6 % (42.0-54.0); HEMOGLOBIN 12.9 g/dL (13.5-17.5); IMMATURE GRANULOCYTES 0.3 % (0-5); LYMPHOCYTES 40.5 % (15-50); MCH 30.4 pg (26.0-34.0); MCHC 34.3 g/dL (31.0-37.0); MCV 88.5 fL (80.0-100.0); MEAN PLATELET VOLUME 8.4 fL (7.4-10.4); MONOCYTES 8.2 % (2-11); NEUTROPHILS 47.9 % (40-80); RBC 4.25 10x6/uL (4.20-6.10); RDW 12.2 % (11.5-14.5); WBC 10.2 10x3/uL (4.8-10.8)
[2020-02-29 11:00] LABS: PLATELET COUNT 301 10x3/uL (130-400)
[2020-02-29 11:06] LABS: APTT 25.1 SECONDS (22.8-39.4); INR 1.01 (0.85-1.17); PROTIME 13.2 SECONDS (11.6-15.0)
[2020-02-29 11:08] LABS: CALC OSMOLALITY 283 mosm/kg (275-300); CALCIUM 9.5 mg/dL (8.5-10.1); CARBON DIOXIDE 25.6 mmol/L (21.0-32.0); CHLORIDE - SERUM 102 mmol/L (98-107); CREATININE - SERUM 2.5 mg/dL (0.6-1.3); POTASSIUM - SERUM 4.4 mmol/L (3.5-5.1); SODIUM 136 mmol/L (136-145); UREA NITROGEN 28 mg/dL (7-18); eGFR NON AFRICAN AMERICAN 30 mL/min (90-120)
[2020-02-29 11:12] LABS: GLUCOSE 204 mg/dL (74-106)
[2020-02-29 11:31] LABS: ALBUMIN 3.2 g/dL (3.4-5.0); ALKALINE PHOSPHATASE 113 U/L (30-120); ALT (SGPT) 25 U/L (10-68); BILIRUBIN - TOTAL 0.23 mg/dL (0.2-1.3); CKMB 2.1 U/L (0.0-3.6); CREATINE KINASE 175 UL (21-232); MAGNESIUM - SERUM 2.3 mg/dL (1.8-2.4); PROTEIN - SERUM 7.7 g/dL (6.4-8.2)
[2020-02-29 11:33] LABS: TROPONIN-I < 0.017 ng/mL (0.000-0.060)
[2020-02-29 12:30] LABS: UDS - AMPHET NEGATIVE QUAL (NEGATIVE); UDS - BARB NEGATIVE QUAL (NEGATIVE); UDS - BENZO NEGATIVE QUAL (NEGATIVE); UDS - COCAINE NEGATIVE QUAL (NEGATIVE); UDS - OPIATE NEGATIVE QUAL (NEGATIVE); UDS - PCP NEGATIVE QUAL (NEGATIVE); UDS - THC NEGATIVE QUAL (NEGATIVE)
[2020-02-29 12:37] LABS: NITRITE NEGATIVE (NEGATIVE)
[2020-02-29 12:38] LABS: BILIRUBIN NEGATIVE (NEGATIVE); GLUCOSE 1000 mg/dL (NEGATIVE); KETONE NEGATIVE (NEGATIVE); UROBILINOGEN NORMAL (NORMAL)
[2020-02-29 12:39] LABS: BACTERIA FEW /hpf (NEGATIVE); EPITHELIAL CELLS RARE /hpf (0-5); RED CELLS - URINE OCC /hpf (0-5); WHITE CELLS - URINE RARE /hpf (NEGATIVE)
[2020-02-29 16:01] VITALS: BP 107/68
== END 2020-02-29 16:02 | disposition home or self-care (01) ==
LOC: D.ER 10:35
PROVIDERS: Emergency Medicine
DX: R41.82 Altered mental status, unspecified (principal); E11.65 Type 2 diabetes mellitus with hyperglycemia; N28.9 Disorder of kidney and ureter, unspecified; Z79.84 Long term (current) use of oral hypoglycemic drugs